=== PATIENT | female | born 1995 ===

== ENCOUNTER 2021-01-26 18:21 | Emergency (ER) | payer SELFPAY ==
[~2021-01-26] VITALS: Ht 152.4 cm; Wt 90.3 kg
[2021-01-26 20:02] VITALS: BP 138/87
[2021-01-26] MEDS ORDERED: methylPREDNISolone SOD SUCC 125 MG/2 ML VL IM ONE (20:30)
[2021-01-26] MEDS ORDERED: KETOROLAC TROMETH 60MG/2ML VIAL IM ONE (20:30)
== END 2021-01-26 23:53 | disposition home or self-care (01) ==
LOC: ER 18:21
DX: S83.91XA Sprain of unspecified site of right knee, initial encounter (principal); Z88.1 Allergy status to other antibiotic agents; W01.0XXA Fall on same level from slipping, tripping and stumbling without subsequent striking against object, initial encounter; Y93.89 Activity, other specified; Y92.89 Other specified places as the place of occurrence of the external cause; Y99.8 Other external cause status
CPT/HCPCS: 73562; 96372; 99284; J1885; J2930